=== PATIENT | female | born 1995 | race Caucasian/White ===

== ENCOUNTER 2016-11-21 12:24 | Observation (INO) | payer OTHER ==
--- NOTE | ~2016-11-21 | DS ---
Discharge Summary [facility] [address] [place]. [address] NAME: ALAINA NORTON : 89 STATUS : DIS Caesar PAT#: [id number] AGE: 21 ADM/REG DATE : 11/21/16 MR#: [id number] REPORT SERV DATE: 11/24/16 DICTATED BY: ARI BOTELLO DATE: 11/23/16 REPORT STATUS : Draft TRANSCRIBED BY: MODArchana DATE: 11/23/16 ADMISSION DATE: 11/21/2016 DISCHARGE DATE: 11/23/2016 PROCEDURES DONE: 1. 11/21/2016 CT abdomen and pelvis without contrast. Partially dislodged jejunostomy tube with a retention balloon within the trach, within the abdominal wall near the skin surface. The distal aspect of tube remains in the jejunal lumen. Trace fluid in the pelvis, which may be physiologic. Stable subpleural nodule density in left lower lobe measuring 4 x 7 mm suggest follow up as previously recommended with followup. Low-dose CT scan of chest in 6 months from my prior imaging performed on 09/11/2016. Status post cholecystectomy. 2. 11/22/2016 chest x-ray: PICC line tips and SVC in satisfactory position. No acute process and no change. 3. 11/22/2016, Interventional Radiology. Technically successful fluoroscopy associated over the guidewire J-tube exchange. CONSULTANTS: Dr. Bro, for GI, Dr. Tellez for Psychology, and Dr. Pantoja for ID. REASON FOR ADMISSION: Displaced J-tube. 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 The patient apparently has dislodge her J-tube. Unknown mechanism at the time of presentation. CT scan abdomen and pelvis shows balloon was within the abdominal tract. Interventional Radiology was consulted, which replaced the change in ostomy tube via guidewire. The patient tolerated procedure well without any complication. More importantly, Infectious Disease was consulted because the patient had a discharge near the PEG site. The patient was concerned about possible infection. ID was consulted, which felt that the patient's overall clinical picture does not does not show any active infection around the PEG site. In addition, Dr. Tellez was consulted for possible disruption of the feeding tube. Dr. Tellez felt that there was no psychiatric intervention at this time and does not see any evidence for Munchausen diagnosis. In addition, during the hospital stay, the patient was noted to be taking significant amounts of Dilaudid, Phenergan, and Benadryl given together. The patient consumed approximately within 48 hours greater than 100 mg equivalent of morphine. At this time, the patient does not have any significant gastroparesis. She is able to eat p.o., as well as tolerate the PEG tube feedings. The following information was relayed to Dr. Bro, who felt that the patient can be safely discharged with a tube feeding rate of 30 mL an hour on promote. In addition, the patient has been advised to encourage her p.o. intake in order to control her blood sugar. DISPOSITION: The patient is feeling fine, no complaint. ACTIVITIES: As tolerated. Discharge Summary [address] [address] NAME: ALAINA NORTON : 89 STATUS : DIS Caesar PAT#: [id number] AGE: 21 ADM/REG DATE : 11/21/16 MR#: [id number] REPORT SERV DATE: 11/24/16 DICTATED BY: ARI BOTELLO DATE: 11/23/16 REPORT STATUS : Draft TRANSCRIBED BY: MIKEY DATE: 11/23/16 DIET: Diabetic with promote. MEDICATION UPON DISCHARGE: 1. BuSpar 10 mg p.o. daily via PEG daily. 2. Vitamin D 50,000 units via PEG q. Mondays. 3. Neurontin 300 mg via PEG daily. 4. NovoLog sliding scale. 5. Levemir 100 units subcu q.8h. 6. Lidoderm 5% patch q.12 hours on, q.12 hours off. 7. Singulair 10 mg p.o. at bedtime. 8. Metoprolol 12.5 mg p.o. b.i.d. 9. Protonix 40 mg p.o. daily. 10.Potassium 15 mg via PEG at bedtime. 11.Xarelto 20 mg p.o. q supper. 12.Vitamin E ointment topical b.i.d. 13.Dulera 100/5 two puffs b.i.d. p.r.n. 14.Multivitamin one tab daily. 15.Phenergan topical jelly q.6 p.r.n. 16.Benadryl 25 mg p.o./liquid q.4 hours p.r.n. 17.Albuterol nebulizers q.4 hours p.r.n. 18.Zofran 8 mg p.o. q.4 hours. 19.Milk of magnesia 30 mL via PEG daily p.r.n. 20.Ultram 50 mg p.o. t.i.d. p.r.n. 21.Lidocaine jelly topical q.8h p.r.n. 22.Phenergan 12.5 mg p.o. q 4 hours p.r.n. 23.Phenergan 25 mg IV p.r.n. DIAGNOSES UPON DISCHARGE: 1. Dislodge PEG. 2. Diabetic gastroparesis. 3. Diabetes type 1. FBJ/MODL Ari Botello MD / [id number] CC: MD Sweta Barrientos MD
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
--- NOTE | ~2016-11-21 | HP ---
History And Physical [address] [address] NAME: ALAINA NORTON : [birth year] STATUS : ADM Caesar PAT#: [id number] AGE: 21 ADM/REG DATE : 11/21/16 MR#: [id number] REPORT SERV DATE: 11/22/16 DICTATED BY: ARI BOTELLO DATE: 11/21/16 REPORT STATUS : Draft TRANSCRIBED BY: MIKEY DATE: 11/21/16 DATE OF ADMISSION: 11/21/2016 CHIEF COMPLAINT: Displaced J-tube, unknown duration. 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 The patient apparently stated that she was picking up her grandpa, which weighed about 176 pounds, off the floor. After that the patient noticed that her J-tube has been displaced. On further questioning, the patient states that she could not remember exactly what happened other than the J-tube has been coming out. The patient cannot give any further history regarding as to the reason why her J-tube is out. PAST MEDICAL HISTORY: As above. MEDICATIONS: The patient takes: 1. Albuterol nebulizers q.4 hours p.r.n. 2. BuSpar 10 mg via PEG daily. 3. Benadryl 25 mg p.o./LIQ q.4 hours p.r.n. 4. Vitamin D 50,000 units via PEG Mondays. 5. Neurontin 300 mg via PEG daily. 6. Sliding scale. 7. Levemir 100 units subcu q.8. 8. Lidoderm patch q.12 hours on and off. 9. Metoprolol 12.5 mg via PEG b.i.d. 10.Milk of magnesia 30 mL p.o. via PEG daily p.r.n. 11.Dulera 100/5 two puffs b.i.d. p.r.n. 12.Singulair 10 mg via PEG p.r.n. 13.Centrum one tab daily. 14.Zofran 8 mg via PEG q.4 hours. 15.Protonix 40 mg daily. 16.Potassium 20 mEq in a 50 mL via PEG at bedtime. 17.Phenergan 12.5 mg p.o. q.4. 18.Phenergan 12,5 mg p.r. q.6 p.r.n. 19.Phenergan 12.5 mg IV q.4 hours p.r.n. 20.Xarelto 20 mg p.o. with supper. 21.Ultram 50 mg p.o. t.i.d. p.r.n. 22.Vitamin D ointment topical b.i.d. 23.Phenergan topical jelly q.6 hours p.r.n. 24.Lidocaine jelly topical q.8 hours p.r.n. ALLERGIES: SULFA, CODEINE, OXYCODONE, TYLENOL, ERYTHROMYCIN, CLINDAMYCIN, AUGMENTIN, BACTRIM, CIPRO, ADHESIVE, AZITHROMYCIN, AMOXICILLIN, REGLAN, PUMPKIN, SEGURA MALLOW ROOT, ADHESIVE, LATEX, AND CARAMEL. History And Physical [address] [address] NAME: ALAINA NORTON : 89 STATUS : ADM Caesar PAT#: [id number] AGE: 21 ADM/REG DATE : 11/21/16 MR#: [id number] REPORT SERV DATE: 11/22/16 DICTATED BY: ARI BOTELLO DATE: 11/21/16 REPORT STATUS : Draft TRANSCRIBED BY: MIKEY DATE: 11/21/16 SOCIAL HISTORY: Nonsmoker nondrinker. FAMILY HISTORY: The patient is adopted. However, the patient states there is diabetes, history of breast cancer, and sarcoidosis. REVIEW OF SYSTEMS: A 10-point review of systems conducted, which were negative except for above complaints. PHYSICAL EXAMINATION: VITAL SIGNS: Temp 97.7, pulse 115, respiratory rate 16, BP 167/96, and O2 saturation 99% on room air. HEAD AND NECK: Normocephalic and atraumatic. LUNGS: Good air entry. No wheeze, rales, or rhonchi. ABDOMEN: Soft, nontender, nondistended. Positive bowel sounds. J-PEG is in place, questionable drainage. EXTREMITIES: No clubbing, cyanosis, or edema. NEUROLOGICAL: Awake, alert, and oriented x3. Cranial nerves 2 through 12 grossly intact. LABORATORY DATA: Sodium 137, potassium 4.9, chloride 101, bicarb 24, BUN 9, creatinine 0.46, glucose 381, GFR 141, calcium 8.4, total protein 7.5, albumin 3.4, globulin 3.6, total bilirubin 0.5, alkaline phosphatase 74, ALT 25, and AST 15. WBC 5.6, hemoglobin 12.5, hematocrit 35.2, and platelets 238. CT abdomen and pelvis without contrast. Partially dislodged jejunostomy tube with the retention balloon within the tract within the abdominal wall near the skin surface. The distal aspect of the tube remains in jejunal lumen. Trace free fluid in the pelvis, which may be psychologic. Stable subpleural nodule density in the left lower lobe measuring 4 x 7 mm, suggest followup as previous with a followup low-dose CT scan at 6 months prior to imaging performed on 09/11/2016 and status post cholecystectomy. ASSESSMENT AND PLAN: 1. J-tube displacement. We will have Interventional Radiology change the current displaced J-tube. There is a question that the patient would like to see Dr. Bro. At this time, we will place a courtesy consult at this time regarding the patient's J- tube displacement. 2. Diabetes type 1. Continue the patient's Levemir 100 units subcu b.i.d. and a sliding scale. We will check HbA1c. Apparently, the patient visits Dr. Turcios's office once a week for diabetes control. Apparently, the patient states that her blood sugar still remains elevated. 3. Diabetic gastroparesis. The patient states there is also changes regarding her Phenergan, which was 25 mg IV q.4, which is rather high for prolonged use of Phenergan. We will try to get the medication from her pharmacy to verify dose. 4. DVT. We will give heparin. FBJ/MODL Ari Mitchell History And Physical [address] [place]. [address] NAME: ALAINA NORTON : 89 STATUS : ADM Caesar PAT#: [id number] AGE: 21 ADM/REG DATE : 11/21/16 MR#: [id number] REPORT SERV DATE: 11/22/16 DICTATED BY: ARI BOTELLO DATE: 11/21/16 REPORT STATUS : Draft TRANSCRIBED BY: MODL DATE: 11/21/16 MD Farzaneh / [id number] CC: Ari Botello MD
[2016-11-21 12:03] LABS: BASOPHILS 0.5 %; BASOPHILS ABSOLUTE 0.03 10/3/uL (0.0-0.16); EOSINOPHILS 2.5 %; EOSINOPHILS ABSOLUTE 0.14 10/3/uL (0.0-0.53); HEMATOCRIT 35.2 % (36.0-48.0); HEMOGLOBIN 12.5 g/dL (12.0-16.0); IMMATURE GRANULOCYTES 0.2 %; IMMATURE GRANULOCYTES ABSOLUTE 0.01 10/3/uL (0.0-0.11); LYMPHOCYTES 19.9 %; LYMPHOCYTES ABSOLUTE 1.11 10/3/uL (0.67-4.30); MANUAL DIFF NO %; MEAN CORPUS HGB CONC 35.5 g/dL (32.0-36.0); MEAN CORPUSCULAR HEMOGLOB 28.3 pg (26.0-34.0); MEAN CORPUSCULAR VOLUME 79.8 fL (80-100); MEAN PLATELET VOLUME 9.9 fL (9.2-13.0); NEUTROPHILS 67.9 %; NEUTROPHILS ABSOLUTE 3.78 10/3/uL (2.02-8.40); PLATELET COUNT 238 10/3/uL (150-400); RBC DISTRIBUTION WIDTH 12.2 % (12.0-16.0); RED CELL COUNT 4.41 10/6/uL (4.0-5.6); WHITE BLOOD CELLS 5.6 10/3/uL (4.5-10.5)
[2016-11-21 12:20] LABS: A/G RATIO 0.9 (0.7-1.9); ALKALINE PHOSPHATASE 74 U/L (45-117); BUN (BLOOD UREA NITROGEN) 9 MG/DL (6-23); CHLORIDE, SERUM 101 MMOL/L (96-112); CO2 (CARBON DIOXIDE) 24 MMOL/L (24-34); CREATININE 0.46 MG/DL (0.55-1.02); GFR AFRICAN AMERICAN 164 ML/MIN (>=60); GFR NON AFRICAN AMERICAN 141 ML/MIN (>=60); GLOBULIN 3.6 G/DL (2.5-4.1); POTASSIUM, SERUM 4.1 MMOL/L (3.5-5.3); SGOT(AST) 15 U/L (5-40); SGPT(ALT) 25 U/L (5-65); SODIUM, SERUM 137 MMOL/L (135-148); TOTAL BILIRUBIN 0.5 MG/DL (0-1.2)
[2016-11-21 12:23] LABS: ALBUMIN 3.4 G/DL (3.5-5.0); CALCIUM, SERUM 8.4 MG/DL (8.5-10.4); GLUCOSE, SERUM 381 MG/DL (60-99)
[~2016-11-21 12:24] MED LIST: BEN25UDL PO; BEN50P IV; BUSPAR10 PEG; CENTRUM PEG; DULERA 100 MCG/13 GM INH; FISH OIL PEG; FLAGIV500 IV; GABAPENTIN PO; KCL20UDL PEG; LEVEMIR SC; LIDOCAINE JELLY 2% T; LIDODERM TOP; LISINOPRIL RX PO; LOP25 PEG; MOMUD PEG; NEUR300 PEG; NOVOLOG SC; PHENERGAN 2525 MG/M1 IV; POTASSIUM OTC PO; PR12.5 PO; PR25P IV; PROMETHAZINE TOP; PROTONIX PO; PROVENTSOL INH; PULMICORT INH; SINGULAIR1 PEG; TRESIBA FL100 UNIT/1 SC; ULTRAM50 PO; VITAMIN B-12 OTC PEG; VITAMIN E TOP; VITD PEG; XARELTO20 MG PO; ZOFRANODT8 PEG
[2016-11-22 05:01] LABS: BASOPHILS 0.5 %; BASOPHILS ABSOLUTE 0.02 10/3/uL (0.0-0.16); EOSINOPHILS 3.2 %; EOSINOPHILS ABSOLUTE 0.14 10/3/uL (0.0-0.53); HEMATOCRIT 34.2 % (36.0-48.0); HEMOGLOBIN 11.6 g/dL (12.0-16.0); IMMATURE GRANULOCYTES 0.2 %; IMMATURE GRANULOCYTES ABSOLUTE 0.01 10/3/uL (0.0-0.11); LYMPHOCYTES 41.3 %; LYMPHOCYTES ABSOLUTE 1.83 10/3/uL (0.67-4.30); MANUAL DIFF NO %; MEAN CORPUS HGB CONC 33.9 g/dL (32.0-36.0); MEAN CORPUSCULAR VOLUME 82.4 fL (80-100); NEUTROPHILS 45.8 %; NEUTROPHILS ABSOLUTE 2.03 10/3/uL (2.02-8.40); PLATELET COUNT 255 10/3/uL (150-400); RBC DISTRIBUTION WIDTH 12.2 % (12.0-16.0); RED CELL COUNT 4.15 10/6/uL (4.0-5.6); WHITE BLOOD CELLS 4.4 10/3/uL (4.5-10.5)
[2016-11-22 05:15] LABS: ALBUMIN 3.1 G/DL (3.5-5.0); ALKALINE PHOSPHATASE 65 U/L (45-117); BUN (BLOOD UREA NITROGEN) 7 MG/DL (6-23); CALCIUM, SERUM 8.6 MG/DL (8.5-10.4); CHLORIDE, SERUM 102 MMOL/L (96-112); CO2 (CARBON DIOXIDE) 25 MMOL/L (24-34); CREATININE 0.54 MG/DL (0.55-1.02); GFR AFRICAN AMERICAN 155 ML/MIN (>=60); GFR NON AFRICAN AMERICAN 134 ML/MIN (>=60); GLOBULIN 3.2 G/DL (2.5-4.1); SGOT(AST) 17 U/L (5-40); SGPT(ALT) 21 U/L (5-65); SODIUM, SERUM 138 MMOL/L (135-148); TOTAL BILIRUBIN 0.6 MG/DL (0-1.2); TOTAL PROTEIN 6.3 G/DL (6.0-8.5)
[2016-11-22 05:20] LABS: GLUCOSE, SERUM 419 MG/DL (60-99)
[2016-11-22 09:01] LABS: INTERNATIONAL NORMAL RATI 1.1 UNITS (-); PROTIME (NOT ORD) 13.6 SEC (12.0-14.5)
[2016-11-23 05:55] LABS: BASOPHILS 0.5 %; BASOPHILS ABSOLUTE 0.03 10/3/uL (0.0-0.16); EOSINOPHILS 3.8 %; EOSINOPHILS ABSOLUTE 0.25 10/3/uL (0.0-0.53); HEMATOCRIT 36.3 % (36.0-48.0); HEMOGLOBIN 12.6 g/dL (12.0-16.0); IMMATURE GRANULOCYTES 0.3 %; IMMATURE GRANULOCYTES ABSOLUTE 0.02 10/3/uL (0.0-0.11); LYMPHOCYTES 35.3 %; MEAN CORPUS HGB CONC 34.7 g/dL (32.0-36.0); MEAN CORPUSCULAR HEMOGLOB 28.4 pg (26.0-34.0); MEAN CORPUSCULAR VOLUME 81.9 fL (80-100); MEAN PLATELET VOLUME 9.5 fL (9.2-13.0); MONOCYTES 9.8 %; MONOCYTES ABSOLUTE 0.64 10/3/uL (0.21-1.20); NEUTROPHILS 50.3 %; NEUTROPHILS ABSOLUTE 3.28 10/3/uL (2.02-8.40); PLATELET COUNT 312 10/3/uL (150-400); RBC DISTRIBUTION WIDTH 12.2 % (12.0-16.0); RED CELL COUNT 4.43 10/6/uL (4.0-5.6)
[2016-11-23 06:01] LABS: ALBUMIN 3.4 G/DL (3.5-5.0); ALKALINE PHOSPHATASE 71 U/L (45-117); BUN (BLOOD UREA NITROGEN) 7 MG/DL (6-23); CALCIUM, SERUM 8.8 MG/DL (8.5-10.4); CHLORIDE, SERUM 106 MMOL/L (96-112); CO2 (CARBON DIOXIDE) 26 MMOL/L (24-34); CREATININE 0.43 MG/DL (0.55-1.02); GFR AFRICAN AMERICAN 167 ML/MIN (>=60); GFR NON AFRICAN AMERICAN 144 ML/MIN (>=60); GLOBULIN 3.5 G/DL (2.5-4.1); PHOSPHORUS, SERUM 4.3 MG/DL (2.5-4.5); POTASSIUM, SERUM 3.4 MMOL/L (3.5-5.3); SGOT(AST) 10 U/L (5-40); SGPT(ALT) 18 U/L (5-65); SODIUM, SERUM 143 MMOL/L (135-148); TOTAL BILIRUBIN 0.5 MG/DL (0-1.2); TOTAL PROTEIN 6.9 G/DL (6.0-8.5)
[2016-11-23 06:02] LABS: GLUCOSE, SERUM 71 MG/DL (60-99)
[2016-11-23 06:11] LABS: MANUAL DIFF NO %; WHITE BLOOD CELLS 6.5 10/3/uL (4.5-10.5)
== END 2016-11-23 17:40 | disposition home or self-care (01) ==
LOC: ER 12:24 → CDU1 17:18
PROVIDERS: Hospitalist
DX: K94.23 Gastrostomy malfunction (principal); E11.43 Type 2 diabetes mellitus with diabetic autonomic (poly)neuropathy; K31.84 Gastroparesis; I82.409 Acute embolism and thrombosis of unspecified deep veins of unspecified lower extremity; J45.909 Unspecified asthma, uncomplicated; F41.9 Anxiety disorder, unspecified; Z88.1 Allergy status to other antibiotic agents; Z91.040 Latex allergy status; Z88.6 Allergy status to analgesic agent; Z88.2 Allergy status to sulfonamides; Z88.5 Allergy status to narcotic agent; Z88.8 Allergy status to other drugs, medicaments and biological substances; Z83.3 Family history of diabetes mellitus; Z80.3 Family history of malignant neoplasm of breast; Z79.4 Long term (current) use of insulin; Z90.49 Acquired absence of other specified parts of digestive tract; Z79.899 Other long term (current) drug therapy
CPT/HCPCS: 49451; 71010; 74176; 80053; 82962; 83036; 83735; 84100; 84703; 85025; 85610; 87040; 87070; 87077; 87186; 87205; 96372; 96374; 96375; 96376; 96523; 99284; A9270-GY; C1769; G0378; J0330; J1170; J1200; J2370; J2405; J2550; Q9967

== ENCOUNTER 2016-12-07 23:50 | Emergency (ER) | payer OTHER ==
[2016-12-08 01:41] LABS: BASOPHILS 0.4 %; BASOPHILS ABSOLUTE 0.02 10/3/uL (0.0-0.16); EOSINOPHILS 2.1 %; EOSINOPHILS ABSOLUTE 0.11 10/3/uL (0.0-0.53); ER CBC TAT 0 Hrs 05 Mins; HEMATOCRIT 36.3 % (36.0-48.0); HEMOGLOBIN 12.7 g/dL (12.0-16.0); IMMATURE GRANULOCYTES 0.2 %; IMMATURE GRANULOCYTES ABSOLUTE 0.01 10/3/uL (0.0-0.11); LYMPHOCYTES 34.3 %; LYMPHOCYTES ABSOLUTE 1.82 10/3/uL (0.67-4.30); MEAN CORPUSCULAR HEMOGLOB 28.1 pg (26.0-34.0); MEAN CORPUSCULAR VOLUME 80.3 fL (80-100); MONOCYTES ABSOLUTE 0.32 10/3/uL (0.21-1.20); NEUTROPHILS ABSOLUTE 3.02 10/3/uL (2.02-8.40); PLATELET COUNT 256 10/3/uL (150-400); RBC DISTRIBUTION WIDTH 12.8 % (12.0-16.0); RED CELL COUNT 4.52 10/6/uL (4.0-5.6); WHITE BLOOD CELLS 5.3 10/3/uL (4.5-10.5)
[2016-12-08 01:43] LABS: ASCORBIC ACID (UR NOT ORDER) NEG (NEG); BILIRUBIN, URINE NEGATIVE (NEG); ER URINALYSIS TAT 0 Hrs 00 Mins; KETONE, URINE TRACE MG/DL (NEG); LEUKOCYTE ESTERASE(NOT OR NEG (NEG); NITRITE (URINE) NEG (NEG); WBC (NOT ORDERED) (RFLEX) < 1 (0-5)
[2016-12-08 01:47] LABS: MANUAL DIFF NO %
[2016-12-08 01:52] LABS: PARTIAL THROMBO TIME 25.2 SEC (22.5-37.2); PROTIME (NOT ORD) 13.5 SEC (12.0-14.5)
[2016-12-08 01:59] LABS: BUN (BLOOD UREA NITROGEN) 5 MG/DL (6-23); CALCIUM, SERUM 8.7 MG/DL (8.5-10.4); CHEST PAIN PROFILE TAT 0 Hrs 23 Mins; CHLORIDE, SERUM 100 MMOL/L (96-112); CO2 (CARBON DIOXIDE) 29 MMOL/L (24-34); CREATININE 0.57 MG/DL (0.55-1.02); GFR AFRICAN AMERICAN 153 ML/MIN (>=60); GFR NON AFRICAN AMERICAN 132 ML/MIN (>=60); GLUCOSE, SERUM 395 MG/DL (60-99); POTASSIUM, SERUM 3.3 MMOL/L (3.5-5.3); SODIUM, SERUM 140 MMOL/L (135-148); TROPONIN I <0.02 NG/ML (<0.05)
[2016-12-08 02:08] LABS: ACETONE NEG
== END 2016-12-08 03:46 | disposition home or self-care (01) ==
LOC: ER 23:50
PROVIDERS: Emergency Medicine
DX: E10.65 Type 1 diabetes mellitus with hyperglycemia (principal); Z86.718 Personal history of other venous thrombosis and embolism; Z93.4 Other artificial openings of gastrointestinal tract status; Z88.2 Allergy status to sulfonamides; Z88.5 Allergy status to narcotic agent; Z88.6 Allergy status to analgesic agent; Z88.1 Allergy status to other antibiotic agents; Z88.8 Allergy status to other drugs, medicaments and biological substances; Z91.040 Latex allergy status; Z91.018 Allergy to other foods; Z79.4 Long term (current) use of insulin; Z79.899 Other long term (current) drug therapy
CPT/HCPCS: 80048; 81001; 82009; 82962; 83735; 84484; 84703; 85025; 85610; 85730; 93005; 96374; 96375; 99285; J1170; J1200; J2550

== ENCOUNTER 2016-12-23 10:17 | Emergency (ER) | payer OTHER ==
[2016-12-23 09:21] LABS: BASOPHILS 0.4 %; BASOPHILS ABSOLUTE 0.02 10/3/uL (0.0-0.16); EOSINOPHILS 1.7 %; EOSINOPHILS ABSOLUTE 0.08 10/3/uL (0.0-0.53); ER CBC TAT 0 Hrs 05 Mins; HEMATOCRIT 37.6 % (36.0-48.0); HEMOGLOBIN 12.8 g/dL (12.0-16.0); IMMATURE GRANULOCYTES 0.4 %; IMMATURE GRANULOCYTES ABSOLUTE 0.02 10/3/uL (0.0-0.11); LYMPHOCYTES 25.6 %; LYMPHOCYTES ABSOLUTE 1.22 10/3/uL (0.67-4.30); MANUAL DIFF NO %; MEAN CORPUSCULAR HEMOGLOB 27.4 pg (26.0-34.0); MEAN CORPUSCULAR VOLUME 80.3 fL (80-100); MEAN PLATELET VOLUME 10.1 fL (9.2-13.0); MONOCYTES 7.1 %; MONOCYTES ABSOLUTE 0.34 10/3/uL (0.21-1.20); NEUTROPHILS 64.8 %; NEUTROPHILS ABSOLUTE 3.08 10/3/uL (2.02-8.40); PLATELET COUNT 195 10/3/uL (150-400); RBC DISTRIBUTION WIDTH 12.9 % (12.0-16.0); RED CELL COUNT 4.68 10/6/uL (4.0-5.6); WHITE BLOOD CELLS 4.8 10/3/uL (4.5-10.5)
[2016-12-23 09:36] LABS: PROTIME (NOT ORD) 13.5 SEC (12.0-14.5)
[2016-12-23 09:37] LABS: PARTIAL THROMBO TIME 25.1 SEC (22.5-37.2)
[2016-12-23 09:38] LABS: LACTATE 0.4 MMOL/L (0.3-2.4)
[2016-12-23 09:39] LABS: A/G RATIO 0.9 (0.7-1.9); ALBUMIN 3.3 G/DL (3.5-5.0); CALCIUM, SERUM 8.4 MG/DL (8.5-10.4); CHLORIDE, SERUM 100 MMOL/L (96-112); GFR AFRICAN AMERICAN 159 ML/MIN (>=60); GFR NON AFRICAN AMERICAN 137 ML/MIN (>=60); GLOBULIN 3.6 G/DL (2.5-4.1); SGOT(AST) 11 U/L (5-40); SGPT(ALT) 17 U/L (5-65); SODIUM, SERUM 136 MMOL/L (135-148); TOTAL PROTEIN 6.9 G/DL (6.0-8.5)
[2016-12-23 09:43] LABS: ALKALINE PHOSPHATASE 90 U/L (45-117); BUN (BLOOD UREA NITROGEN) 10 MG/DL (6-23); CO2 (CARBON DIOXIDE) 22 MMOL/L (24-34); GLUCOSE, SERUM 436 MG/DL (60-99); TOTAL BILIRUBIN 1.1 MG/DL (0-1.2)
[2016-12-23 09:51] LABS: WBC (NOT ORDERED) (RFLEX) 0 (0-5)
[2016-12-23 09:57] LABS: ASCORBIC ACID (UR NOT ORDER) NEG (NEG); BILIRUBIN, URINE NEGATIVE (NEG); ER URINALYSIS TAT 0 Hrs 08 Mins; KETONE, URINE 80 MG/DL (NEG); LEUKOCYTE ESTERASE(NOT OR NEG (NEG); NITRITE (URINE) NEG (NEG)
[2016-12-23 11:35] LABS: PROCALCITONIN <0.05 ng/mL (<0.5)
== END 2016-12-23 15:18 | disposition home or self-care (01) ==
LOC: ER 10:17
PROVIDERS: Emergency Medicine
DX: K94.19 Other complications of enterostomy (principal); E11.65 Type 2 diabetes mellitus with hyperglycemia; E11.43 Type 2 diabetes mellitus with diabetic autonomic (poly)neuropathy; K31.84 Gastroparesis; J45.909 Unspecified asthma, uncomplicated; Z88.2 Allergy status to sulfonamides; Z88.5 Allergy status to narcotic agent; Z88.6 Allergy status to analgesic agent; Z88.1 Allergy status to other antibiotic agents; Z88.8 Allergy status to other drugs, medicaments and biological substances; Z91.018 Allergy to other foods; Z91.040 Latex allergy status; Z91.09 Other allergy status, other than to drugs and biological substances; Z79.4 Long term (current) use of insulin; Z79.899 Other long term (current) drug therapy
CPT/HCPCS: 43761; 71010; 76000; 80053; 81001; 82962; 83605; 84145; 85025; 85610; 85730; 87040; 96374; 96375; 99285; A9270-GY; J1200; J2550

== ENCOUNTER 2017-01-11 01:11 | Emergency (ER) | payer OTHER ==
[2017-01-11 02:21] LABS: BASOPHILS 0.5 %; BASOPHILS ABSOLUTE 0.03 10/3/uL (0.0-0.16); EOSINOPHILS 2.1 %; EOSINOPHILS ABSOLUTE 0.13 10/3/uL (0.0-0.53); HEMATOCRIT 37.4 % (36.0-48.0); HEMOGLOBIN 12.2 g/dL (12.0-16.0); IMMATURE GRANULOCYTES 0.2 %; IMMATURE GRANULOCYTES ABSOLUTE 0.01 10/3/uL (0.0-0.11); LYMPHOCYTES 32.2 %; LYMPHOCYTES ABSOLUTE 2.02 10/3/uL (0.67-4.30); MEAN CORPUS HGB CONC 32.6 g/dL (32.0-36.0); MEAN CORPUSCULAR HEMOGLOB 26.8 pg (26.0-34.0); MEAN CORPUSCULAR VOLUME 82.2 fL (80-100); MEAN PLATELET VOLUME 9.5 fL (9.2-13.0); MONOCYTES 7.5 %; MONOCYTES ABSOLUTE 0.47 10/3/uL (0.21-1.20); NEUTROPHILS 57.5 %; NEUTROPHILS ABSOLUTE 3.62 10/3/uL (2.02-8.40); PLATELET COUNT 233 10/3/uL (150-400); RBC DISTRIBUTION WIDTH 13.1 % (12.0-16.0); RED CELL COUNT 4.55 10/6/uL (4.0-5.6); WHITE BLOOD CELLS 6.3 10/3/uL (4.5-10.5)
[2017-01-11 02:22] LABS: MANUAL DIFF NO %
[2017-01-11 02:28] LABS: ASCORBIC ACID (UR NOT ORDER) NEG (NEG); BILIRUBIN, URINE NEGATIVE (NEG); ER URINALYSIS TAT 0 Hrs 00 Mins; KETONE, URINE NEGATIVE (NEG); LEUKOCYTE ESTERASE(NOT OR NEG (NEG); NITRITE (URINE) NEG (NEG); WBC (NOT ORDERED) (RFLEX) < 1 (0-5)
[2017-01-11 02:36] LABS: A/G RATIO 0.9 (0.7-1.9); ALBUMIN 3.4 G/DL (3.5-5.0); ALKALINE PHOSPHATASE 79 U/L (45-117); CALCIUM, SERUM 9.3 MG/DL (8.5-10.4); CHLORIDE, SERUM 107 MMOL/L (96-112); CO2 (CARBON DIOXIDE) 25 MMOL/L (24-34); CREATININE 0.59 MG/DL (0.55-1.02); GFR AFRICAN AMERICAN 151 ML/MIN (>=60); GFR NON AFRICAN AMERICAN 130 ML/MIN (>=60); GLOBULIN 3.8 G/DL (2.5-4.1); POTASSIUM, SERUM 3.6 MMOL/L (3.5-5.3); SGOT(AST) 18 U/L (5-40); SGPT(ALT) 27 U/L (5-65); SODIUM, SERUM 142 MMOL/L (135-148); TOTAL PROTEIN 7.2 G/DL (6.0-8.5)
[2017-01-11 02:37] LABS: BUN (BLOOD UREA NITROGEN) 16 MG/DL (6-23); LACTATE 1.7 MMOL/L (0.3-2.4)
[2017-01-11 02:38] LABS: GLUCOSE, SERUM 115 MG/DL (60-99); TOTAL BILIRUBIN 0.2 MG/DL (0-1.2)
== END 2017-01-11 04:22 | disposition home or self-care (01) ==
LOC: ER 01:11
PROVIDERS: Emergency Medicine
DX: R10.12 Left upper quadrant pain (principal); G89.29 Other chronic pain; E10.9 Type 1 diabetes mellitus without complications; Z86.718 Personal history of other venous thrombosis and embolism; Z88.2 Allergy status to sulfonamides; Z88.5 Allergy status to narcotic agent; Z88.6 Allergy status to analgesic agent; Z88.1 Allergy status to other antibiotic agents; Z88.8 Allergy status to other drugs, medicaments and biological substances; Z79.4 Long term (current) use of insulin; Z79.899 Other long term (current) drug therapy
CPT/HCPCS: 71010; 74176; 80053; 81001; 82962; 83605; 83690; 84703; 85025; 87040; 93005; 96374; 96375; 99285; J1200; J1980; J2550

== ENCOUNTER 2017-01-22 20:36 | Inpatient (IN) | payer OTHER ==
--- NOTE | ~2017-01-22 | DS ---
Discharge Summary [facility] [id number] [place]. [address] NAME: BELINDA NORTON : 89 STATUS : DIS IN PAT#: [id number] AGE: 22 ADM/REG DATE : 01/22/17 MR#: [id number] REPORT SERV DATE: 02/07/17 DICTATED BY: SAEID SANCHEZ DATE: 02/06/17 REPORT STATUS : Draft TRANSCRIBED BY: MODL DATE: 02/06/17 ADMISSION DATE: 01/22/2017 DISCHARGE DATE: 02/06/2017 GI: Dr. Bro. ENDO: Dr. Turcios. PULMONARY: Dr. Ohara CONSULTING PHYSICIAN: Neurology, Dr. Montero. Psychiatry, Dr. Tellez. Pulmonary, Dr. Nino. GI, Dr. Sanders and Dr. Bro. Vascular Surgery, Dr. Phillips. 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 HOSPITAL COURSE: Please refer to the H and P done by Dr. Sampson, dated 01/23/2017 and the interim discharge summary done by Dr. Bhandari on 02/05/2017. Since I took care of the patient, the patient was ready for discharge several weeks back, however, she keeps coming back with some new symptoms that seems trivial. We finally got Dr. Tellez involved and he believed that this might be a possible somatization disorder. He strongly recommended that she should return to her outpatient counseling and he signed off. The patient did not have a documented vomiting. She continues having this nausea and abdominal pain which did not seem to go away. She is able to eat without any vomiting and her sugar is under control with her insulin pump. The patient also was treated with Levaquin and has been afebrile and the white count has been normal. The patient is now ready for discharge. We got clearance from GI for her to go several days back and so she should be discharged to home with family. She needs to follow up with her PCP, Dr. Moura in one to two weeks. Follow up with GI, Dr. Bro as scheduled; Dr. Turcios for Endocrinology; Dr. Ohara for Pulmonary in six months for followup with the nodule in Outpatient Psychiatry as scheduled. The patient will be on the same home medication that she was on which are BuSpar 10 mg p.r.n. anxiety, Benadryl 25 mg as needed, insulin pump, metoprolol 12.5 mg twice a day, Dulera 100/5 two puffs twice a day, Singulair 10 mg a day, Phenergan 25 mg IV q.[address] Almaguer told me Dr. Bro is planning to send her for a tertiary evaluation and what to do with her gastroparesis as an outpatient. This has been discussed with the patient. She understood the plan. MIRYAM/MIKEY Saeid Sanchez M.D. / [id number] Discharge Summary [address] [address] NAME: BELINDA NORTON : 89 STATUS : DIS IN PAT#: [id number] AGE: 22 ADM/REG DATE : 01/22/17 MR#: [id number] REPORT SERV DATE: 02/07/17 DICTATED BY: SAEID SANCHEZ DATE: 02/06/17 REPORT STATUS : Draft TRANSCRIBED BY: MIKEY DATE: 02/06/17 CC: Chaim Jaramillo MD
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
--- NOTE | ~2017-01-22 | EEG ---
Electroencephalogram [facility] [address] [place]. [address] NAME: BELINDA NORTON : 89 STATUS : ADM IN PAT#: [id number] AGE: 22 ADM/REG DATE : 01/22/17 MR#: [id number] REPORT SERV DATE: 02/02/17 DICTATED BY: DATE: REPORT STATUS : Draft TRANSCRIBED BY: MODL DATE: 02/02/17 CLINICAL INDICATION: Loss of consciousness episode. DESCRIPTION: This EEG was performed using 10/20 electrode placement system. During the EEG study, the patient was noted to have symmetric background activity, predominant occipital rhythm of 10 to 11 hertz. The patient was noted to be drowsy from the beginning of the EEG study, with the stage I to II sleep as well as sleep spindles. Otherwise the photic stimulation was performed with appropriate driver material handler driving response. Hyperventilation was not performed secondary to the patient's underlying medical problem as well as excessive drowsiness and sleepiness. During the EEG study, no focal abnormalities, seizure activity, or seizure discharge was otherwise noted. INTERPRETATION: This EEG study was obtained during awake, drowsy as well as stage I and II sleep may be considered mildly abnormal secondary to excessive drowsiness as well as excessive sleepiness. Outpatient sleep study might be oriented for further evaluation. Otherwise, no electrographic seizure was noted. No loss of consciousness episode. Clinical event was captured. No focal abnormalities, seizure activity, or seizure discharge was noted. Clinical correlation is recommended. [facility]/MOD Josh Montero MD / [id number] CC: Chaim Abraham MD
--- NOTE | ~2017-01-22 | HP ---
History And Physical [id number] [place]. [address] NAME: ALAINA NORTON : 89 STATUS : ADM Caesar PAT#: [id number] AGE: 21 ADM/REG DATE : 01/22/17 MR#: [id number] REPORT SERV DATE: 01/23/17 DICTATED BY: FREDDY RODGERS DATE: 01/23/17 REPORT STATUS : Draft TRANSCRIBED BY: MODL DATE: 01/23/17 DATE OF ADMISSION: 01/22/2017 CHIEF COMPLAINT: Nausea, vomiting, abdominal pain. 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 History is obtained from the patient, and reviewing data available on the [employer] system. According to Ms. Norton she had just returned from vacation in [place] with her daughter, where her daughter had respiratory infection and also had the flu. After she returned, she did have some coughing, but had no fevers or chills. Became sick. Had nausea, vomiting, and was unable to keep anything down. This has been going on for a day or two here, and today she felt she was not hydrating herself and called Dr. Bro's office and was asked to go to the emergency room to be evaluated. In the emergency room, she presented with a mild DKA, had a pH of 7.35, pCO2 was 30, PaO2 of 93, and bicarb was 16.4. She had 80 ketones in the urine. Acetone was positive in the blood. Her blood sugars were 294 and not too high. Hospitalist Service is asked to admit her for further evaluation and treatment. At the time of my evaluation, she denied any chest pain, palpitations, or orthopnea. She had no cough, hemoptysis, night sweats, or weight loss. She denied any recent falls or loss of consciousness. No history of fevers or chills. Did have nausea and vomiting as mentioned above. Did not have any diarrhea, hematemesis, hematochezia, or hematuria. No other history of recent travel or exposures other than those mentioned above. PAST MEDICAL HISTORY: As mentioned above. 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 She also had DVT and is currently on Xarelto. She also has insulin-dependent diabetes mellitus and has a pump. SOCIAL HISTORY: She does not smoke, drink, or use recreational drugs. FAMILY HISTORY: Noncontributory. MEDICATIONS: Her medications at home were reviewed by me in the chart today and reordered by me. REVIEW OF SYSTEMS: As in history of present illness. All other systems were reviewed in detail and are quite unremarkable. PHYSICAL EXAMINATION: History And Physical [address] [address] NAME: ALAINA NORTON : [birth year] STATUS : ADM Caesar PAT#: [id number] AGE: 21 ADM/REG DATE : 01/22/17 MR#: [id number] REPORT SERV DATE: 01/23/17 DICTATED BY: FREDDY RODGERS DATE: 01/23/17 REPORT STATUS : Draft TRANSCRIBED BY: MIKEY DATE: 01/23/17 GENERAL: This is a pleasant 21-year-old female not in any acute distress. HEENT: Her head is atraumatic and normocephalic. She is alert, awake, oriented to time, place, and person. Pupils are equal, reacting to light and accommodating. External ocular muscles are intact. Membranes are moist and pink. Sclerae are nonicteric. NECK: Supple with no jugular venous distention, lymphadenopathy, or thyromegaly. LUNGS: Clear to auscultation with no wheezes, rubs, or crackles. HEART: Heart sounds were regular with no murmurs, rubs, or gallops. ABDOMEN: Soft and nontender. Bowel sounds are present. EXTREMITIES: No cyanosis, clubbing, or edema. NEUROLOGIC: Grossly intact. No focal sensory or motor deficits. Higher functions appeared intact. She does not have a J-tube anymore. The site looks clean without any discharge at this time. VITAL SIGNS: Her vital signs today showed a temperature of 97.2, pulse 108, respirations 19 a minute, blood pressure was 113/62, and oxygen saturations were 94% breathing 2-3 L via nasal cannula. LABORATORY DATA: Reviewed on the [employer] system showed a pH of 7.35 on arterial blood gas on room air, pCO2 is 30, PaO2 is 93, and bicarb is 16.4. CMP showed a sodium of 134, potassium 3.7, chloride 99, CO2 of 22, the BUN was 11 with a creatinine of 0.63. Blood glucose was 294 upon arrival. Liver numbers were within normal limits. Lipase was 51 today. Lactate was 1.1 today. CBC showed a white blood cell count of 7700. Normal hemoglobin, hematocrit, and platelet count. Urinalysis showed 80 ketones, otherwise without any signs of infection. Films of the chest x-ray were reviewed by me on the PACS today and interpreted by me. Today's films were compared to prior films available on the PACS as well. There is no acute infiltrates or effusions seen. A 12-lead EKG done in the emergency room was reviewed and interpreted by me. There is sinus tachycardia at a rate of [address]-T changes. IMPRESSION: 1. Diabetic ketoacidosis. 2. Gastroparesis. 3. Deep venous thrombosis, on Xarelto. 4. Munchausen syndrome. 5. Severe diabetic gastroparesis. 6. Insulin-dependent diabetes mellitus. 7. Asthma. PLAN: We will admit Ms. Norton to the Hospitalist Service with telemetry for a 24-hour observation period. We will start her on insulin infusion per protocol with hourly Accu- History And Physical [address] [address] NAME: ALAINA NORTON : 94 STATUS : ADM Caesar PAT#: [id number] AGE: 21 ADM/REG DATE : 01/22/17 MR#: [id number] REPORT SERV DATE: 01/23/17 DICTATED BY: FREDDY RODGERS DATE: 01/23/17 REPORT STATUS : Draft TRANSCRIBED BY: MODL DATE: 01/23/17 Cheks and adjust accordingly. We will start her on fluid replacement. We will start her on normal saline at a rate of 200 and change to D5 half-normal saline, when her sugars around 200. We will continue to check her basic metabolic profile, venous pH, and check her anion gap and ketones in the morning as well. We will hold all tube feedings at this time and also place her on bronchodilators for DVT prophylaxis. She is on Xarelto, which we will continue. I have discussed the above plans with the patient. Her questions were answered and she is agreeable to the above recommendations. Hospitalist Service will be following her during her stay. /MIKEY Freddy Rodgers M.D. / [id number] CC: Chapin Plaza Jr, MD
--- NOTE | ~2017-01-22 | CN ---
Consultation Report [facility] [address] [place]. [address] NAME: BELINDA NORTON : 89 STATUS : ADM IN [facility]#: [id number] AGE: 22 ADM/REG DATE : 01/22/17 MR#: [id number] REPORT SERV DATE: 02/04/17 DICTATED BY: OG WANG DATE: 02/03/17 REPORT STATUS : Draft TRANSCRIBED BY: MODL DATE: 02/03/17 CONSULTATION REPORT DATE OF CONSULTATION: Dear Dr. Bhandari: Thank you for requesting my opinion regarding evaluation of Ms. Norton's lung nodule. Ms. 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 She developed mild DKA and sinus congestion and had some small bloody drainage from her nose. She also complained of right-sided chest pain, but had a CT scan of the chest and V/Q scan, which did not demonstrate any new pulmonary embolism. REVIEW OF SYSTEMS: A detailed 14-point review of systems was completed. Pertinent positives and negatives are listed above. PAST MEDICAL HISTORY: 1. Gastroparesis. 2. Asthma. 3. Munchausen syndrome. 4. DVT, currently on Xarelto. 5. Insulin-dependent diabetes with a pump. PAST SURGICAL HISTORY: Port placement. SOCIAL HISTORY: The patient is a lifelong nonsmoker. She has no history of alcohol or illicit drug abuse. FAMILY HISTORY: Noncontributory. ALLERGIES: MULTIPLE ALLERGIES NOTED IN THE MAR INCLUDING ALL CILLINS, CARAMEL, SULFA, OXYCODONE, ACETAMINOPHEN, ERYTHROMYCIN BASE, CLINDAMYCIN, CLAVULANIC ACID, BACTRIM, CIPRO, ADHESIVE TAPE, AZITHROMYCIN, AMOXICILLIN, METOCLOPRAMIDE , PUMPKIN, MARSHMALLOW ROOT, LINEZOLID , MORPHINE, AND VANCOMYCIN. PHYSICAL EXAMINATION: VITAL SIGNS: Afebrile, T current of 98, pulse of 109, respiratory rate of 17, 98%, blood pressure 115/56. Central line noted. HEENT: Normocephalic and atraumatic. Pupils are equal, round, and reactive to light and accommodation. Posterior oropharynx is clear. Consultation Report [address] [place]. [address] NAME: BELINDA NORTON : 89 STATUS : ADM IN PAT#: [id number] AGE: 22 ADM/REG DATE : 01/22/17 MR#: [id number] REPORT SERV DATE: 02/04/17 DICTATED BY: OG WNAG DATE: 02/03/17 REPORT STATUS : Draft TRANSCRIBED BY: MIKEY DATE: 02/03/17 NECK: No JVD. No LAD. Trachea midline. CARDIOVASCULAR: Regular rate and rhythm. S1 and S2 present. LUNGS: Clear bilateral breath sounds. No end-expiratory wheezes noted. ABDOMEN: Nontender. Nondistended. Soft. Positive bowel sounds. EXTREMITIES: No clubbing, cyanosis, or edema. SKIN: No new rashes, lesions, or ulcers. PSYCHIATRIC: Alert and oriented x3. Appropriate mood and affect. Appropriate insight and judgment. NEUROLOGIC: 5/5 strength in upper and lower extremities. Cranial nerves 2 through 12 intact. Gait not tested. DTRs not performed. IMAGING: CT scan of the chest demonstrates no acute pulmonary infiltrate or acute thoracic pathology, stable pleural-based 8 mm nodular fibrosis in the posterior left lung noted, right IJ central venous line in place. Chemistry is normal. V/Q scan, very low probability of pulmonary embolism. ASSESSMENT AND PLAN: Ms. Belinda Norton is a pleasant 22-year-old female with a significant past medical history of diabetic ketoacidosis and 8 mm nodular fibrotic lesion and prior history of hemoptysis, status post remote bronchoscopy, who re-presented to [facility] with nausea and vomiting secondary to severe gastroparesis and diabetic ketoacidosis, developed right-sided chest pain. V/Q scan demonstrated a very low probability of pulmonary embolism, and CT scan was also reassuring with this six-month stability of her 8 mm nodular fibrotic changes in the left lung base. At this point, I recommend the followin. Follow up with Dr. Ohara in six months with a repeat CT scan to re-evaluate the 8 mm lung nodule. 2. I agree with Levaquin for her sinus symptoms. 3. No further recommendations and the patient is stable from a Pulmonary standpoint. Thank you for allowing me to participate in Ms. Belinda Norton's care. Sincerely, LALY/MIKEY Og Wang M.D. / [id number] CC: Chaim Abraham MD
--- NOTE | ~2017-01-22 | OP ---
Record Of Operation [facility] [address] [place]. [address] NAME: BELINDA NORTON : 94 STATUS : ADM IN PAT#: [id number] AGE: 22 ADM/REG DATE : 01/22/17 MR#: [id number] REPORT SERV DATE: 02/01/17 DICTATED BY: ARNOLD PHILLIPS DATE: 02/01/17 REPORT STATUS : Draft TRANSCRIBED BY: MODL DATE: 02/01/17 DATE OF PROCEDURE: 02/01/2017 PREOPERATIVE DIAGNOSIS: Diabetic gastroparesis. POSTOPERATIVE DIAGNOSIS: Diabetic gastroparesis. PROCEDURE: 1. Placement of Groshong catheter, right IJ. 2. Removal of left chest Port-A-Cath. SURGEON: Arnold Phillips M.D. ANESTHESIA: General. COMPLICATIONS: None. BLOOD LOSS: Minimal. HISTORY: The patient is a 22-year-old female in need of a long-standing IV access due to diabetic gastroparesis. It was felt the best option would be a Groshong type catheter as the only Goss catheter available had 3 ports. Catheter placement had been discussed in detail with the patient. She expressed understanding and desired to proceed. DESCRIPTION OF PROCEDURE: The patient was taken to the operating room and placed in the supine position. She was given general anesthesia without complication. Her neck and chest were prepped and draped in the sterile fashion. Ultrasound was used to identify the internal jugular vein on the right. Patency was confirmed with compression. A copy of this image is placed on the chart. 1% Lidocaine was infiltrated in the skin and the subcutaneous tissues at the internal jugular vein on to the chest wall. Under ultrasound guidance, an 18 gauge needle placed into the internal jugular vein. Wire was passed into the SVC and IVC which was confirmed with fluoroscopy. A site for exit of the Groshong was identified on the chest wall and small incision created here. The Groshong was tunneled from the access site to the exit site and fluoroscopy was used to confirm the appropriate length. Under fluoroscopic guidance, the peel-away sheath and dilator passed over the wire in the SVC. The wire and dilator were removed. The catheter was placed through the peel-away sheath. The sheath peeled away without difficulty. The catheter aspirated and flushed easily. The tip of the catheter was in the SVC. There was no kinking. The access site and exit site were closed with 4-0 Monocryl suture. The cuff was secured in the subcutaneous tissues. The catheter was then secured to the chest wall with Ethilon suture. The end of the catheter was secured with the fasting device as well prior to this. Once this was felt to be adequate, attention was turned to the left chest and 1% lidocaine was infiltrated in the skin and subcutaneous tissues at the port site. The old incision was reopened and dissection performed to free the port circumferentially from the surrounding tissues and it was removed without difficulty. The incision was closed with running 3-0 Vicryl suture followed by a running 4-0 Monocryl suture and Dermabond dressing applied. The patient Record Of [address] [place]. [address] NAME: BELINDA NORTON : 89 STATUS : ADM IN PAT#: [id number] AGE: 22 ADM/REG DATE : 01/22/17 MR#: [id number] REPORT SERV DATE: 02/01/17 DICTATED BY: ARNOLD PHILLIPS DATE: 02/01/17 REPORT STATUS : Draft TRANSCRIBED BY: MIKEY DATE: 02/01/17 tolerated the procedure well. She will be taken to the recovery room and back to her room for continued care. CSPer/MIKEY Arnold Phillips M.D. / [id number] CC: Chaim Abraham MD
--- NOTE | ~2017-01-22 | IDS ---
Interim Discharge Summary [facility] [address] [place]. [address] NAME: BELINDA NORTON : 89 STATUS : ADM IN [facility]#: [id number] AGE: 22 ADM/REG DATE : 01/22/17 MR#: [id number] REPORT SERV DATE: 02/05/17 DICTATED BY: CHANELLE SAAVEDRA DATE: 02/04/17 REPORT STATUS : Draft TRANSCRIBED BY: MODL DATE: 02/04/17 ADMISSION DATE: 01/22/2017 DISCHARGE DATE: DIABETES DIAGNOSES: Include, 1. Diabetes type 1 with gastroparesis status post diabetic ketoacidosis that has been resolved. She is back on her insulin pump and she has been seen by Dr. Alcaraz as an outpatient, currently off. The patient is not on a diabetic ketoacidosis. 2. Clotted Port-A-Cath with removal of the Port-A-Cath as well as the PICC line and placement of a Groshong catheter on the internal jugular Dr. Arnold Phillips on 02/01/2017. 3. Rhino-sino bronchial syndrome, improving antibiotics 3/5 days. 4. Severe gastroparesis with nausea and vomiting. At baseline, she has either a PICC line or a port and self-administer IV Phenergan and Benadryl at home under direction of Dr. Bro. 5. Pulmonary nodule, stable. 6. Reported episodes of near-syncope and syncope. 7. History of asthma. 8. Personality disorder with anxiety and depression. CONSULTANTS ON THE CASE: Dr. Arnold Phillips, Vascular; Dr. Montero, Neurology; Dr. Tellez of Psychiatry. PROCEDURE DONE DURING THIS HOSPITALIZATION: Include removal of the left chest port CT as well as decline and placement of Groshong catheter to the right IJ. OTHER TESTS DONE DURING THIS HOSPITALIZATION: Include a V/Q scan, which showed low probability for PE. CT of the chest without contrast which shows no acute pulmonary infiltrate. There is a stable pleural based nodular fibrotic in the left lung base which has not been changed since August 2016, CT scan with a right IJ in place the patient had an EEG performed by Dr. Montero on 02/02/2017 that has been normal, no focal abnormality seizure activity that could be identified. Also, she had MRI of the brain without contrast, that showed normal MRI of the brain and mild chronic maxillary and ethmoid sinus disease. Chest x-ray is has been negative. 2D echo showed normal left ventricular ejection fraction. HOSPITAL COURSE: This a 22-year-old female who has been admitted to Hospitalist Service under Dr. Jacinto Peraza's care on 01/23/2017 with intractable nausea, vomiting, and abdominal pain. It is important to note that she has a history of diabetes type 1 insulin dependent. 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 She finished her treatment. She has been admitted to [facility] after returning from vacationing her daughter with DKA with nausea, vomiting, and inability to keep anything down. The patient called Dr. Bro office who actually provide most of the patient care and she has been sent to emergency room to be evaluated. She has been admitted for DKA. The patient has been admitted with DKA and gastroparesis Interim Discharge Summary [address] [address] NAME: BELINDA NORTON : 89 STATUS : ADM IN PAT#: [id number] AGE: 22 ADM/REG DATE : 01/22/17 MR#: [id number] REPORT SERV DATE: 02/05/17 DICTATED BY: CHANELLE SAAVEDRA DATE: 02/04/17 REPORT STATUS : Draft TRANSCRIBED BY: MIKEY DATE: 02/04/17 exacerbation. She has been started on IV fluids initially insulin infusion as per protocol. 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 Dr. Bro has been consulted. Dr. Bro is managing her gastroparesis with some IV Phenergan and as well as IV Benadryl. She has been started by Dr. Bro on her home medications. Very slowly, her nausea and vomiting resolved. She has been able to be taken off the insulin drip and placed her on subcutaneous insulin at the settings that has been placed by Dr. Alcaraz as an outpatient with good blood sugar control. Dr. Bro recommended her Port-A-Cath is not functioning, and as a result, the vascular surgeon has been consulted to evaluate for due to partially clogged port, evaluate to for replacement, and than follow with Dr. Bro as an outpatient. Vascular has been consulted, and after discussing between Dr. Phillips and Dr. Bro, it has been recommended to placement of a Groshong catheter and removal of the Port-A-Cath as well as the PICC line. The patient has been tolerating well the catheter and medications have been administered through it. However, the patient reported episodes of the loss of intermittent over the last couple of weeks and Dr. Montero from Neurology Service has been consulted due to this recurrent episodes loss of consciousness with no prodrome episode. An MRI, EEG, as well as echo has been ordered all of which haves been normal. After placement of the Groshong catheter, the patient started to complain of some sinus congestion and some mucopurulent tinged sputum and a V/Q scan has been ordered as well as the CT of the chest with and without contrast which revealed a pulmonary nodule. The patient requested to be seen by Dr. Nino from Pulmonary Service who has been following her for the pulmonary nodule. He evaluated the CT scan as well as the patient and recommended followup with Dr. Ohara in six months with a repeat CT scan to evaluate her 8 mm lung nodule. She has had the [place]- bronchial syndrome which after started on Levaquin her sinus symptoms improved significantly. However, the patient started to complain of severe right arm pain and pain at the site of the Groshong catheter as well as the swelling, so as a result, we are going to reconsult Dr. Phillips to evaluate the patient and the catheter and the functionality of that as well as ultrasound of the right upper extremity to rule out DVT. The patient has a significant anxiety and she has been diagnosed with depression in the past related to some medical issues as well social issues, and we are going to consult Dr. Tellez from Psychiatry Service to evaluate the patient. Once ready for discharge, the patient will need to follow up with Dr. Bro as well as a primary care provider. It is important to note that her pharmacy needs to be called 24 hours prior to discharge to deliver her IV Benadryl as well as her Phenergan that has been prescribed by Dr. Derik Bro. My partner is going to start following Ms Norton since 02/06/2017. CF/MODL Chanelle Saavedra M.D. / [id number] CC: Interim Discharge Summary [address] [place]. [address] NAME: BELINDA NORTON : 89 STATUS : ADM IN PAT#: [id number] AGE: 22 ADM/REG DATE : 01/22/17 MR#: [id number] REPORT SERV DATE: 02/05/17 DICTATED BY: CHANELLE SAAVEDRA DATE: 02/04/17 REPORT STATUS : Draft TRANSCRIBED BY: MIKEY DATE: 02/04/17 Chaim Abraham MD
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
[2017-01-22 22:28] LABS: BASOPHILS 0.3 %; BASOPHILS ABSOLUTE 0.02 10/3/uL (0.0-0.16); EOSINOPHILS 0.9 %; EOSINOPHILS ABSOLUTE 0.07 10/3/uL (0.0-0.53); ER CBC TAT 0 Hrs 09 Mins; HEMATOCRIT 40.7 % (36.0-48.0); HEMOGLOBIN 14.5 g/dL (12.0-16.0); IMMATURE GRANULOCYTES 0.4 %; IMMATURE GRANULOCYTES ABSOLUTE 0.03 10/3/uL (0.0-0.11); LYMPHOCYTES 22.4 %; LYMPHOCYTES ABSOLUTE 1.72 10/3/uL (0.67-4.30); MEAN CORPUSCULAR HEMOGLOB 28.1 pg (26.0-34.0); MEAN PLATELET VOLUME 9.6 fL (9.2-13.0); MONOCYTES 5.6 %; MONOCYTES ABSOLUTE 0.43 10/3/uL (0.21-1.20); NEUTROPHILS 70.4 %; NEUTROPHILS ABSOLUTE 5.42 10/3/uL (2.02-8.40); PLATELET COUNT 292 10/3/uL (150-400); RBC DISTRIBUTION WIDTH 13.2 % (12.0-16.0); RED CELL COUNT 5.16 10/6/uL (4.0-5.6); WHITE BLOOD CELLS 7.7 10/3/uL (4.5-10.5)
[2017-01-22 22:29] LABS: MANUAL DIFF NO %; MEAN CORPUS HGB CONC 35.6 g/dL (32.0-36.0); MEAN CORPUSCULAR VOLUME 78.9 fL (80-100)
[2017-01-22 22:39] LABS: ACETONE SMALL
[2017-01-22 22:45] LABS: INTERNATIONAL NORMAL RATI 1.1 UNITS (-); PARTIAL THROMBO TIME 25.7 SEC (22.5-37.2); PROTIME (NOT ORD) 13.8 SEC (12.0-14.5)
[2017-01-22 22:49] LABS: ALKALINE PHOSPHATASE 112 U/L (45-117); BUN (BLOOD UREA NITROGEN) 11 MG/DL (6-23); CALCIUM, SERUM 9.5 MG/DL (8.5-10.4); CHEST PAIN PROFILE TAT 0 Hrs 30 Mins; CHLORIDE, SERUM 99 MMOL/L (96-112); CO2 (CARBON DIOXIDE) 22 MMOL/L (24-34); CREATININE 0.63 MG/DL (0.55-1.02); DIRECT BILIRUBIN 0.2 MG/DL (0.0-0.4); GFR AFRICAN AMERICAN 148 ML/MIN (>=60); GFR NON AFRICAN AMERICAN 127 ML/MIN (>=60); GLUCOSE, SERUM 294 MG/DL (60-99); HCG SERUM QUANTITATIVE <1.0 IU/L (0-6); INDIRECT BILIRUBIN(NOT ORDER) 0.3 MG/DL (0.1-0.9); POTASSIUM, SERUM 3.7 MMOL/L (3.5-5.3); SGOT(AST) 12 U/L (5-40); SGPT(ALT) 18 U/L (5-65); SODIUM, SERUM 134 MMOL/L (135-148); TOTAL BILIRUBIN 0.5 MG/DL (0-1.2); TOTAL PROTEIN 8.4 G/DL (6.0-8.5); TROPONIN I <0.02 NG/ML (<0.05)
[2017-01-22 23:08] LABS: BE (BASE EXCESS) -7.7 MEQ/L (0 +/- 2.5); HCO3 (ACTUAL BICARBONATE) 16.4 MEQ/L (23-27); HEMOBLOGIN CONTENT 14.1 G/DL (12-16); INSTRUMENT SERIAL # 8087; METHEMOGLOBIN 0.3 % (0-3); OPERATOR ID 17370; PCO2 (CO2 TENSION) 30 MMHG (35-45); PO2 (O2 TENSION) 93 MMHG (79-93); SAMPLE Arterial; pH 7.35 (7.37-7.43)
[2017-01-22 23:09] LABS: ALLENS TEST Pos
[2017-01-23 00:38] LABS: ASCORBIC ACID (UR NOT ORDER) NEG (NEG); BILIRUBIN, URINE NEGATIVE (NEG); ER URINALYSIS TAT 0 Hrs 00 Mins; KETONE, URINE 80 MG/DL (NEG); LEUKOCYTE ESTERASE(NOT OR NEG (NEG); NITRITE (URINE) NEG (NEG); WBC (NOT ORDERED) (RFLEX) 1 (0-5)
[2017-01-23] MEDS ORDERED: NOVLOGPUMP SC (02:32)
[2017-01-23] MEDS ORDERED: LOP25 PO (02:35)
[2017-01-23] MEDS ORDERED: BEN50P PO (02:36)
[2017-01-23] MEDS ORDERED: PHENERGAN 2525 MG/M1 IV (02:36)
[2017-01-23] MEDS ORDERED: DULERA 100 MCG/13 GM INH (02:38)
[2017-01-23] MEDS ORDERED: BUSPAR10 PO (02:38)
[2017-01-23] MEDS ORDERED: SINGULAIR1 PO (02:39)
[2017-01-23 11:10] LABS: BASOPHILS 0.2 %; BASOPHILS ABSOLUTE 0.01 10/3/uL (0.0-0.16); EOSINOPHILS 1.3 %; EOSINOPHILS ABSOLUTE 0.08 10/3/uL (0.0-0.53); HEMATOCRIT 37.2 % (36.0-48.0); HEMOGLOBIN 12.9 g/dL (12.0-16.0); IMMATURE GRANULOCYTES 0.3 %; IMMATURE GRANULOCYTES ABSOLUTE 0.02 10/3/uL (0.0-0.11); LYMPHOCYTES 29.5 %; LYMPHOCYTES ABSOLUTE 1.83 10/3/uL (0.67-4.30); MANUAL DIFF NO %; MEAN CORPUS HGB CONC 34.7 g/dL (32.0-36.0); MEAN CORPUSCULAR HEMOGLOB 27.7 pg (26.0-34.0); MEAN PLATELET VOLUME 9.6 fL (9.2-13.0); MONOCYTES 4.7 %; MONOCYTES ABSOLUTE 0.29 10/3/uL (0.21-1.20); NEUTROPHILS ABSOLUTE 3.98 10/3/uL (2.02-8.40); PLATELET COUNT 249 10/3/uL (150-400); RBC DISTRIBUTION WIDTH 13.2 % (12.0-16.0); RED CELL COUNT 4.65 10/6/uL (4.0-5.6); WHITE BLOOD CELLS 6.2 10/3/uL (4.5-10.5)
[2017-01-23 11:21] LABS: CALCIUM, SERUM 8.6 MG/DL (8.5-10.4); CHLORIDE, SERUM 105 MMOL/L (96-112); CO2 (CARBON DIOXIDE) 24 MMOL/L (24-34); CREATININE 0.64 MG/DL (0.55-1.02); GFR AFRICAN AMERICAN 147 ML/MIN (>=60); GFR NON AFRICAN AMERICAN 127 ML/MIN (>=60); SODIUM, SERUM 137 MMOL/L (135-148)
[2017-01-23 11:23] LABS: BUN (BLOOD UREA NITROGEN) 7 MG/DL (6-23); GLUCOSE, SERUM 199 MG/DL (60-99); PHOSPHORUS, SERUM 2.3 MG/DL (2.5-4.5); POTASSIUM, SERUM 3.5 MMOL/L (3.5-5.3)
[2017-01-23 14:00] LABS: ASCORBIC ACID (UR NOT ORDER) NEG (NEG); BILIRUBIN, URINE NEGATIVE (NEG); KETONE, URINE 80 MG/DL (NEG); LEUKOCYTE ESTERASE(NOT OR NEG (NEG); WBC (NOT ORDERED) (RFLEX) 2 (0-5)
[2017-01-24 05:15] LABS: BUN (BLOOD UREA NITROGEN) 10 MG/DL (6-23); CALCIUM, SERUM 8.6 MG/DL (8.5-10.4); CHLORIDE, SERUM 110 MMOL/L (96-112); CO2 (CARBON DIOXIDE) 23 MMOL/L (24-34); GFR AFRICAN AMERICAN 159 ML/MIN (>=60); GFR NON AFRICAN AMERICAN 137 ML/MIN (>=60); GLUCOSE, SERUM 198 MG/DL (60-99); POTASSIUM, SERUM 3.5 MMOL/L (3.5-5.3); SODIUM, SERUM 142 MMOL/L (135-148)
[2017-01-24 12:54] LABS: WBC (NOT ORDERED) (RFLEX) 0 (0-5)
[2017-01-24 13:11] LABS: ASCORBIC ACID (UR NOT ORDER) NEG (NEG); BILIRUBIN, URINE NEGATIVE (NEG); KETONE, URINE NEGATIVE (NEG); LEUKOCYTE ESTERASE(NOT OR NEG (NEG)
[2017-01-25 10:56] LABS: BASOPHILS 0.2 %; BASOPHILS ABSOLUTE 0.01 10/3/uL (0.0-0.16); EOSINOPHILS 2.7 %; EOSINOPHILS ABSOLUTE 0.13 10/3/uL (0.0-0.53); HEMATOCRIT 34.1 % (36.0-48.0); HEMOGLOBIN 11.6 g/dL (12.0-16.0); IMMATURE GRANULOCYTES 0.2 %; IMMATURE GRANULOCYTES ABSOLUTE 0.01 10/3/uL (0.0-0.11); LYMPHOCYTES 35.3 %; LYMPHOCYTES ABSOLUTE 1.67 10/3/uL (0.67-4.30); MEAN CORPUSCULAR HEMOGLOB 27.8 pg (26.0-34.0); MEAN CORPUSCULAR VOLUME 81.8 fL (80-100); MEAN PLATELET VOLUME 9.9 fL (9.2-13.0); MONOCYTES 10.8 %; MONOCYTES ABSOLUTE 0.51 10/3/uL (0.21-1.20); NEUTROPHILS 50.8 %; PLATELET COUNT 239 10/3/uL (150-400); RBC DISTRIBUTION WIDTH 13.2 % (12.0-16.0); RED CELL COUNT 4.17 10/6/uL (4.0-5.6); WHITE BLOOD CELLS 4.7 10/3/uL (4.5-10.5)
[2017-01-25 10:59] LABS: MANUAL DIFF NO %
[2017-01-25 11:09] LABS: BUN (BLOOD UREA NITROGEN) 10 MG/DL (6-23); CALCIUM, SERUM 8.6 MG/DL (8.5-10.4); CHLORIDE, SERUM 108 MMOL/L (96-112); CO2 (CARBON DIOXIDE) 25 MMOL/L (24-34); CREATININE 0.48 MG/DL (0.55-1.02); GFR AFRICAN AMERICAN 161 ML/MIN (>=60); GFR NON AFRICAN AMERICAN 139 ML/MIN (>=60); GLUCOSE, SERUM 167 MG/DL (60-99); POTASSIUM, SERUM 3.3 MMOL/L (3.5-5.3); SGOT(AST) 11 U/L (5-40); SGPT(ALT) 14 U/L (5-65); SODIUM, SERUM 144 MMOL/L (135-148); TOTAL BILIRUBIN 0.2 MG/DL (0-1.2)
[2017-01-25 11:11] LABS: ALBUMIN 2.9 G/DL (3.5-5.0); ALKALINE PHOSPHATASE 66 U/L (45-117); C-REACTIVE PROTEIN 7.6 MG/L (<8.0); DIRECT BILIRUBIN < 0.1 MG/DL (0.0-0.4); INDIRECT BILIRUBIN(NOT ORDER) 0.1 MG/DL (0.1-0.9); TOTAL PROTEIN 6.1 G/DL (6.0-8.5)
[2017-01-25 11:47] LABS: SED RATE 9 MM/HR (0-20)
[2017-01-26 08:05] LABS: BASOPHILS 0.4 %; BASOPHILS ABSOLUTE 0.02 10/3/uL (0.0-0.16); EOSINOPHILS 1.9 %; HEMATOCRIT 35.5 % (36.0-48.0); HEMOGLOBIN 11.9 g/dL (12.0-16.0); IMMATURE GRANULOCYTES 0.2 %; IMMATURE GRANULOCYTES ABSOLUTE 0.01 10/3/uL (0.0-0.11); LYMPHOCYTES 28.5 %; LYMPHOCYTES ABSOLUTE 1.46 10/3/uL (0.67-4.30); MEAN CORPUS HGB CONC 33.5 g/dL (32.0-36.0); MEAN CORPUSCULAR HEMOGLOB 27.2 pg (26.0-34.0); MEAN CORPUSCULAR VOLUME 81.1 fL (80-100); MEAN PLATELET VOLUME 9.5 fL (9.2-13.0); MONOCYTES 8.2 %; MONOCYTES ABSOLUTE 0.42 10/3/uL (0.21-1.20); NEUTROPHILS 60.8 %; NEUTROPHILS ABSOLUTE 3.12 10/3/uL (2.02-8.40); PLATELET COUNT 222 10/3/uL (150-400); RBC DISTRIBUTION WIDTH 12.9 % (12.0-16.0); RED CELL COUNT 4.38 10/6/uL (4.0-5.6); WHITE BLOOD CELLS 5.1 10/3/uL (4.5-10.5)
[2017-01-26 08:06] LABS: MANUAL DIFF NO %
[2017-01-26 08:15] LABS: BUN (BLOOD UREA NITROGEN) 9 MG/DL (6-23); CALCIUM, SERUM 8.6 MG/DL (8.5-10.4); CHLORIDE, SERUM 105 MMOL/L (96-112); CO2 (CARBON DIOXIDE) 27 MMOL/L (24-34); CREATININE 0.53 MG/DL (0.55-1.02); GFR AFRICAN AMERICAN 156 ML/MIN (>=60); GFR NON AFRICAN AMERICAN 135 ML/MIN (>=60); GLUCOSE, SERUM 163 MG/DL (60-99); POTASSIUM, SERUM 3.6 MMOL/L (3.5-5.3); SODIUM, SERUM 140 MMOL/L (135-148)
[2017-01-27 06:09] LABS: BASOPHILS 0.2 %; BASOPHILS ABSOLUTE 0.01 10/3/uL (0.0-0.16); EOSINOPHILS 0.6 %; EOSINOPHILS ABSOLUTE 0.04 10/3/uL (0.0-0.53); HEMATOCRIT 36.3 % (36.0-48.0); HEMOGLOBIN 12.3 g/dL (12.0-16.0); IMMATURE GRANULOCYTES 0.2 %; IMMATURE GRANULOCYTES ABSOLUTE 0.01 10/3/uL (0.0-0.11); LYMPHOCYTES 18.9 %; LYMPHOCYTES ABSOLUTE 1.24 10/3/uL (0.67-4.30); MANUAL DIFF NO %; MEAN CORPUS HGB CONC 33.9 g/dL (32.0-36.0); MEAN CORPUSCULAR HEMOGLOB 27.6 pg (26.0-34.0); MEAN CORPUSCULAR VOLUME 81.6 fL (80-100); MEAN PLATELET VOLUME 9.5 fL (9.2-13.0); MONOCYTES 8.4 %; MONOCYTES ABSOLUTE 0.55 10/3/uL (0.21-1.20); NEUTROPHILS 71.7 %; PLATELET COUNT 238 10/3/uL (150-400); RED CELL COUNT 4.45 10/6/uL (4.0-5.6); WHITE BLOOD CELLS 6.6 10/3/uL (4.5-10.5)
[2017-01-27 06:22] LABS: A/G RATIO 0.8 (0.7-1.9); ALBUMIN 3.2 G/DL (3.5-5.0); BUN (BLOOD UREA NITROGEN) 9 MG/DL (6-23); CALCIUM, SERUM 9.1 MG/DL (8.5-10.4); CHLORIDE, SERUM 103 MMOL/L (96-112); CO2 (CARBON DIOXIDE) 27 MMOL/L (24-34); CREATININE 0.52 MG/DL (0.55-1.02); GFR AFRICAN AMERICAN 157 ML/MIN (>=60); GFR NON AFRICAN AMERICAN 136 ML/MIN (>=60); GLOBULIN 4.1 G/DL (2.5-4.1); GLUCOSE, SERUM 182 MG/DL (60-99); POTASSIUM, SERUM 4.1 MMOL/L (3.5-5.3); SGOT(AST) 10 U/L (5-40); SGPT(ALT) 15 U/L (5-65); SODIUM, SERUM 138 MMOL/L (135-148); TOTAL BILIRUBIN 0.4 MG/DL (0-1.2); TOTAL PROTEIN 7.3 G/DL (6.0-8.5)
[2017-01-27 06:23] LABS: ALKALINE PHOSPHATASE 79 U/L (45-117)
[2017-01-28 06:13] LABS: BUN (BLOOD UREA NITROGEN) 10 MG/DL (6-23); CALCIUM, SERUM 9.2 MG/DL (8.5-10.4); CHLORIDE, SERUM 105 MMOL/L (96-112); CO2 (CARBON DIOXIDE) 28 MMOL/L (24-34); CREATININE 0.49 MG/DL (0.55-1.02); GFR AFRICAN AMERICAN 160 ML/MIN (>=60); GFR NON AFRICAN AMERICAN 138 ML/MIN (>=60); GLUCOSE, SERUM 212 MG/DL (60-99); POTASSIUM, SERUM 3.7 MMOL/L (3.5-5.3); SODIUM, SERUM 140 MMOL/L (135-148)
[2017-01-29 06:28] LABS: BASOPHILS 0.5 %; BASOPHILS ABSOLUTE 0.03 10/3/uL (0.0-0.16); EOSINOPHILS 1.6 %; EOSINOPHILS ABSOLUTE 0.09 10/3/uL (0.0-0.53); HEMATOCRIT 34.7 % (36.0-48.0); HEMOGLOBIN 11.5 g/dL (12.0-16.0); IMMATURE GRANULOCYTES 0.2 %; IMMATURE GRANULOCYTES ABSOLUTE 0.01 10/3/uL (0.0-0.11); LYMPHOCYTES 27.7 %; LYMPHOCYTES ABSOLUTE 1.57 10/3/uL (0.67-4.30); MEAN CORPUS HGB CONC 33.1 g/dL (32.0-36.0); MEAN CORPUSCULAR HEMOGLOB 27.1 pg (26.0-34.0); MEAN CORPUSCULAR VOLUME 81.8 fL (80-100); MEAN PLATELET VOLUME 9.7 fL (9.2-13.0); MONOCYTES 8.5 %; MONOCYTES ABSOLUTE 0.48 10/3/uL (0.21-1.20); NEUTROPHILS 61.5 %; NEUTROPHILS ABSOLUTE 3.48 10/3/uL (2.02-8.40); PLATELET COUNT 252 10/3/uL (150-400); RBC DISTRIBUTION WIDTH 12.7 % (12.0-16.0); RED CELL COUNT 4.24 10/6/uL (4.0-5.6); WHITE BLOOD CELLS 5.7 10/3/uL (4.5-10.5)
[2017-01-29 06:31] LABS: MANUAL DIFF NO %
[2017-01-29 06:40] LABS: CHLORIDE, SERUM 101 MMOL/L (96-112); CO2 (CARBON DIOXIDE) 30 MMOL/L (24-34); CREATININE 0.61 MG/DL (0.55-1.02); GFR AFRICAN AMERICAN 149 ML/MIN (>=60); GFR NON AFRICAN AMERICAN 129 ML/MIN (>=60); GLUCOSE, SERUM 233 MG/DL (60-99); POTASSIUM, SERUM 3.7 MMOL/L (3.5-5.3); SODIUM, SERUM 137 MMOL/L (135-148)
[2017-01-29 06:41] LABS: BUN (BLOOD UREA NITROGEN) 14 MG/DL (6-23)
[2017-01-30 10:10] LABS: BUN (BLOOD UREA NITROGEN) 9 MG/DL (6-23); CALCIUM, SERUM 8.3 MG/DL (8.5-10.4); CHLORIDE, SERUM 110 MMOL/L (96-112); CO2 (CARBON DIOXIDE) 27 MMOL/L (24-34); CREATININE 0.43 MG/DL (0.55-1.02); GFR AFRICAN AMERICAN 167 ML/MIN (>=60); GFR NON AFRICAN AMERICAN 144 ML/MIN (>=60); GLUCOSE, SERUM 85 MG/DL (60-99); SODIUM, SERUM 144 MMOL/L (135-148)
[2017-01-31 06:41] LABS: BASOPHILS 0.6 %; BASOPHILS ABSOLUTE 0.03 10/3/uL (0.0-0.16); EOSINOPHILS 2.3 %; EOSINOPHILS ABSOLUTE 0.11 10/3/uL (0.0-0.53); HEMOGLOBIN 10.2 g/dL (12.0-16.0); IMMATURE GRANULOCYTES 0.2 %; IMMATURE GRANULOCYTES ABSOLUTE 0.01 10/3/uL (0.0-0.11); LYMPHOCYTES 38.3 %; LYMPHOCYTES ABSOLUTE 1.84 10/3/uL (0.67-4.30); MEAN CORPUS HGB CONC 33.2 g/dL (32.0-36.0); MEAN CORPUSCULAR HEMOGLOB 27.8 pg (26.0-34.0); MEAN CORPUSCULAR VOLUME 83.7 fL (80-100); MEAN PLATELET VOLUME 9.7 fL (9.2-13.0); MONOCYTES 9.6 %; MONOCYTES ABSOLUTE 0.46 10/3/uL (0.21-1.20); NEUTROPHILS ABSOLUTE 2.35 10/3/uL (2.02-8.40); PLATELET COUNT 238 10/3/uL (150-400); RBC DISTRIBUTION WIDTH 12.6 % (12.0-16.0); RED CELL COUNT 3.67 10/6/uL (4.0-5.6); WHITE BLOOD CELLS 4.8 10/3/uL (4.5-10.5)
[2017-01-31 06:42] LABS: HEMATOCRIT 30.7 % (36.0-48.0); MANUAL DIFF NO %
[2017-01-31 06:57] LABS: BUN (BLOOD UREA NITROGEN) 6 MG/DL (6-23); CHLORIDE, SERUM 111 MMOL/L (96-112); CO2 (CARBON DIOXIDE) 25 MMOL/L (24-34); CREATININE 0.46 MG/DL (0.55-1.02); GFR AFRICAN AMERICAN 164 ML/MIN (>=60); GFR NON AFRICAN AMERICAN 141 ML/MIN (>=60); POTASSIUM, SERUM 3.9 MMOL/L (3.5-5.3); SODIUM, SERUM 144 MMOL/L (135-148)
[2017-01-31 06:59] LABS: GLUCOSE, SERUM 181 MG/DL (60-99)
[2017-02-01 04:48] LABS: BASOPHILS 0.7 %; BASOPHILS ABSOLUTE 0.03 10/3/uL (0.0-0.16); EOSINOPHILS 2.1 %; EOSINOPHILS ABSOLUTE 0.09 10/3/uL (0.0-0.53); HEMATOCRIT 29.7 % (36.0-48.0); HEMOGLOBIN 9.9 g/dL (12.0-16.0); IMMATURE GRANULOCYTES 0.2 %; IMMATURE GRANULOCYTES ABSOLUTE 0.01 10/3/uL (0.0-0.11); LYMPHOCYTES 40.2 %; LYMPHOCYTES ABSOLUTE 1.76 10/3/uL (0.67-4.30); MANUAL DIFF NO %; MEAN CORPUS HGB CONC 33.3 g/dL (32.0-36.0); MEAN CORPUSCULAR HEMOGLOB 27.6 pg (26.0-34.0); MEAN CORPUSCULAR VOLUME 82.7 fL (80-100); MEAN PLATELET VOLUME 9.3 fL (9.2-13.0); MONOCYTES ABSOLUTE 0.44 10/3/uL (0.21-1.20); NEUTROPHILS 46.8 %; NEUTROPHILS ABSOLUTE 2.05 10/3/uL (2.02-8.40); PLATELET COUNT 226 10/3/uL (150-400); RBC DISTRIBUTION WIDTH 12.7 % (12.0-16.0); RED CELL COUNT 3.59 10/6/uL (4.0-5.6); WHITE BLOOD CELLS 4.4 10/3/uL (4.5-10.5)
[2017-02-01 05:06] LABS: BUN (BLOOD UREA NITROGEN) 5 MG/DL (6-23); CALCIUM, SERUM 8.2 MG/DL (8.5-10.4); CHLORIDE, SERUM 111 MMOL/L (96-112); CO2 (CARBON DIOXIDE) 23 MMOL/L (24-34); CREATININE 0.43 MG/DL (0.55-1.02); GFR AFRICAN AMERICAN 166 ML/MIN (>=60); GFR NON AFRICAN AMERICAN 143 ML/MIN (>=60); GLUCOSE, SERUM 151 MG/DL (60-99); POTASSIUM, SERUM 3.7 MMOL/L (3.5-5.3); SODIUM, SERUM 144 MMOL/L (135-148)
[2017-02-02 05:35] LABS: BASOPHILS 0.7 %; BASOPHILS ABSOLUTE 0.03 10/3/uL (0.0-0.16); EOSINOPHILS 2.4 %; EOSINOPHILS ABSOLUTE 0.11 10/3/uL (0.0-0.53); HEMATOCRIT 31.8 % (36.0-48.0); HEMOGLOBIN 10.6 g/dL (12.0-16.0); IMMATURE GRANULOCYTES 0.2 %; IMMATURE GRANULOCYTES ABSOLUTE 0.01 10/3/uL (0.0-0.11); LYMPHOCYTES 33.9 %; LYMPHOCYTES ABSOLUTE 1.54 10/3/uL (0.67-4.30); MEAN CORPUS HGB CONC 33.3 g/dL (32.0-36.0); MEAN CORPUSCULAR HEMOGLOB 27.2 pg (26.0-34.0); MEAN CORPUSCULAR VOLUME 81.7 fL (80-100); MEAN PLATELET VOLUME 9.5 fL (9.2-13.0); NEUTROPHILS 51.8 %; NEUTROPHILS ABSOLUTE 2.35 10/3/uL (2.02-8.40); PLATELET COUNT 253 10/3/uL (150-400); RBC DISTRIBUTION WIDTH 12.8 % (12.0-16.0); RED CELL COUNT 3.89 10/6/uL (4.0-5.6); WHITE BLOOD CELLS 4.5 10/3/uL (4.5-10.5)
[2017-02-02 05:42] LABS: MANUAL DIFF NO %
[2017-02-02 06:03] LABS: BUN (BLOOD UREA NITROGEN) 6 MG/DL (6-23); CALCIUM, SERUM 8.8 MG/DL (8.5-10.4); CHLORIDE, SERUM 108 MMOL/L (96-112); CO2 (CARBON DIOXIDE) 26 MMOL/L (24-34); FREE T4 1.04 NG/DL (0.76-1.46); GFR AFRICAN AMERICAN 149 ML/MIN (>=60); GFR NON AFRICAN AMERICAN 128 ML/MIN (>=60); POTASSIUM, SERUM 4.1 MMOL/L (3.5-5.3); SODIUM, SERUM 142 MMOL/L (135-148); ULTRASENSITIVE TSH 0.733 MCIU/ML (0.358-3.740)
[2017-02-02 06:05] LABS: FOLATE 16.1 NG/ML (>5.2); GLUCOSE, SERUM 228 MG/DL (60-99)
[2017-02-03 04:50] LABS: BASOPHILS 0.1 %; BASOPHILS ABSOLUTE 0.01 10/3/uL (0.0-0.16); EOSINOPHILS 1.1 %; EOSINOPHILS ABSOLUTE 0.09 10/3/uL (0.0-0.53); HEMATOCRIT 34.6 % (36.0-48.0); HEMOGLOBIN 11.4 g/dL (12.0-16.0); IMMATURE GRANULOCYTES 0.1 %; IMMATURE GRANULOCYTES ABSOLUTE 0.01 10/3/uL (0.0-0.11); LYMPHOCYTES 20.5 %; LYMPHOCYTES ABSOLUTE 1.63 10/3/uL (0.67-4.30); MEAN CORPUS HGB CONC 32.9 g/dL (32.0-36.0); MEAN CORPUSCULAR HEMOGLOB 27.1 pg (26.0-34.0); MEAN CORPUSCULAR VOLUME 82.2 fL (80-100); MEAN PLATELET VOLUME 9.4 fL (9.2-13.0); MONOCYTES ABSOLUTE 0.56 10/3/uL (0.21-1.20); NEUTROPHILS 71.2 %; NEUTROPHILS ABSOLUTE 5.67 10/3/uL (2.02-8.40); PLATELET COUNT 281 10/3/uL (150-400); RBC DISTRIBUTION WIDTH 12.9 % (12.0-16.0); RED CELL COUNT 4.21 10/6/uL (4.0-5.6)
[2017-02-03 04:52] LABS: MANUAL DIFF NO %
[2017-02-03 05:02] LABS: A/G RATIO 0.8 (0.7-1.9); ALBUMIN 3.2 G/DL (3.5-5.0); BUN (BLOOD UREA NITROGEN) 8 MG/DL (6-23); CALCIUM, SERUM 9.1 MG/DL (8.5-10.4); CHLORIDE, SERUM 106 MMOL/L (96-112); CO2 (CARBON DIOXIDE) 27 MMOL/L (24-34); CREATININE 0.65 MG/DL (0.55-1.02); GFR AFRICAN AMERICAN 145 ML/MIN (>=60); GFR NON AFRICAN AMERICAN 125 ML/MIN (>=60); GLOBULIN 3.8 G/DL (2.5-4.1); POTASSIUM, SERUM 3.5 MMOL/L (3.5-5.3); SGOT(AST) 21 U/L (5-40); SGPT(ALT) 30 U/L (5-65); SODIUM, SERUM 143 MMOL/L (135-148); TOTAL BILIRUBIN 0.4 MG/DL (0-1.2)
[2017-02-03 05:04] LABS: ALKALINE PHOSPHATASE 67 U/L (45-117); GLUCOSE, SERUM 118 MG/DL (60-99)
[2017-02-04 06:49] LABS: BASOPHILS 0.5 %; BASOPHILS ABSOLUTE 0.02 10/3/uL (0.0-0.16); EOSINOPHILS ABSOLUTE 0.13 10/3/uL (0.0-0.53); HEMATOCRIT 33.1 % (36.0-48.0); HEMOGLOBIN 10.9 g/dL (12.0-16.0); IMMATURE GRANULOCYTES 0.5 %; IMMATURE GRANULOCYTES ABSOLUTE 0.02 10/3/uL (0.0-0.11); LYMPHOCYTES 34.9 %; LYMPHOCYTES ABSOLUTE 1.53 10/3/uL (0.67-4.30); MANUAL DIFF NO %; MEAN CORPUS HGB CONC 32.9 g/dL (32.0-36.0); MEAN CORPUSCULAR HEMOGLOB 27.3 pg (26.0-34.0); MEAN CORPUSCULAR VOLUME 82.8 fL (80-100); MEAN PLATELET VOLUME 9.1 fL (9.2-13.0); MONOCYTES 9.3 %; MONOCYTES ABSOLUTE 0.41 10/3/uL (0.21-1.20); NEUTROPHILS 51.8 %; NEUTROPHILS ABSOLUTE 2.28 10/3/uL (2.02-8.40); PLATELET COUNT 275 10/3/uL (150-400); RBC DISTRIBUTION WIDTH 12.8 % (12.0-16.0); WHITE BLOOD CELLS 4.4 10/3/uL (4.5-10.5)
[2017-02-04 07:02] LABS: BUN (BLOOD UREA NITROGEN) 9 MG/DL (6-23); CALCIUM, SERUM 8.8 MG/DL (8.5-10.4); CHLORIDE, SERUM 107 MMOL/L (96-112); CO2 (CARBON DIOXIDE) 27 MMOL/L (24-34); CREATININE 0.66 MG/DL (0.55-1.02); GFR AFRICAN AMERICAN 144 ML/MIN (>=60); GFR NON AFRICAN AMERICAN 125 ML/MIN (>=60); POTASSIUM, SERUM 3.9 MMOL/L (3.5-5.3); SODIUM, SERUM 140 MMOL/L (135-148)
[2017-02-04 07:03] LABS: GLUCOSE, SERUM 195 MG/DL (60-99)
[2017-02-05 03:36] LABS: BASOPHILS 0.6 %; BASOPHILS ABSOLUTE 0.03 10/3/uL (0.0-0.16); EOSINOPHILS 2.7 %; EOSINOPHILS ABSOLUTE 0.13 10/3/uL (0.0-0.53); HEMATOCRIT 33.6 % (36.0-48.0); HEMOGLOBIN 11.2 g/dL (12.0-16.0); IMMATURE GRANULOCYTES 0.4 %; IMMATURE GRANULOCYTES ABSOLUTE 0.02 10/3/uL (0.0-0.11); LYMPHOCYTES 38.9 %; LYMPHOCYTES ABSOLUTE 1.88 10/3/uL (0.67-4.30); MEAN CORPUS HGB CONC 33.3 g/dL (32.0-36.0); MEAN CORPUSCULAR HEMOGLOB 27.9 pg (26.0-34.0); MEAN CORPUSCULAR VOLUME 83.8 fL (80-100); MEAN PLATELET VOLUME 9.1 fL (9.2-13.0); MONOCYTES 8.3 %; NEUTROPHILS 49.1 %; NEUTROPHILS ABSOLUTE 2.37 10/3/uL (2.02-8.40); PLATELET COUNT 282 10/3/uL (150-400); RBC DISTRIBUTION WIDTH 12.6 % (12.0-16.0); RED CELL COUNT 4.01 10/6/uL (4.0-5.6); WHITE BLOOD CELLS 4.8 10/3/uL (4.5-10.5)
[2017-02-05 03:38] LABS: MANUAL DIFF NO %
[2017-02-05 03:48] LABS: BUN (BLOOD UREA NITROGEN) 12 MG/DL (6-23); CALCIUM, SERUM 9.5 MG/DL (8.5-10.4); CHLORIDE, SERUM 105 MMOL/L (96-112); CO2 (CARBON DIOXIDE) 28 MMOL/L (24-34); CREATININE 0.59 MG/DL (0.55-1.02); GFR AFRICAN AMERICAN 150 ML/MIN (>=60); GFR NON AFRICAN AMERICAN 129 ML/MIN (>=60); SODIUM, SERUM 143 MMOL/L (135-148)
[2017-02-05 03:49] LABS: GLUCOSE, SERUM 141 MG/DL (60-99)
[2017-02-06 06:08] LABS: MEAN CORPUS HGB CONC 32.8 g/dL (32.0-36.0); MEAN CORPUSCULAR HEMOGLOB 27.5 pg (26.0-34.0); MEAN CORPUSCULAR VOLUME 84.1 fL (80-100); MEAN PLATELET VOLUME 8.8 fL (9.2-13.0); RBC DISTRIBUTION WIDTH 12.8 % (12.0-16.0); WHITE BLOOD CELLS 3.1 10/3/uL (4.5-10.5)
[2017-02-06 06:15] LABS: HEMATOCRIT 17.4 % (36.0-48.0); HEMOGLOBIN 5.7 g/dL (12.0-16.0); PLATELET COUNT 146 10/3/uL (150-400); RED CELL COUNT 2.07 10/6/uL (4.0-5.6)
[2017-02-06 06:16] LABS: MANUAL DIFF YES %
[2017-02-06 07:09] LABS: BUN (BLOOD UREA NITROGEN) 12 MG/DL (6-23); CALCIUM, SERUM 8.7 MG/DL (8.5-10.4); CHLORIDE, SERUM 107 MMOL/L (96-112); CO2 (CARBON DIOXIDE) 26 MMOL/L (24-34); CREATININE 0.64 MG/DL (0.55-1.02); GFR AFRICAN AMERICAN 146 ML/MIN (>=60); GFR NON AFRICAN AMERICAN 126 ML/MIN (>=60); GLUCOSE, SERUM 165 MG/DL (60-99); POTASSIUM, SERUM 4.1 MMOL/L (3.5-5.3); SODIUM, SERUM 142 MMOL/L (135-148)
[2017-02-06 07:48] LABS: BAND NEUTROPHILS 2 %; LYMPHOCYTES 35 %; LYMPHOCYTES ABSOLUTE (CALC) 1.09 10/3/uL (0.67-4.30); MONOCYTES 7 %; MONOCYTES ABSOLUTE (CALC) 0.22 10/3/uL (0.21-1.20); PLATELET ESTIMATE SLT DEC (ADEQUATE); SEGMENTED NEUTROPHIL (0) 56 %; TOTAL NUCLEATED CELLS 100
[2017-02-06 07:49] LABS: BURR CELLS 1+ (3-10/OIF) (0-2/OIF); POIKILOCYTOSIS 1+ (5-10/OIF) (0-5/OIF)
[2017-02-06 08:36] LABS: BASOPHILS 0.5 %; BASOPHILS ABSOLUTE 0.03 10/3/uL (0.0-0.16); EOSINOPHILS 2.5 %; EOSINOPHILS ABSOLUTE 0.14 10/3/uL (0.0-0.53); HEMATOCRIT 32.9 % (36.0-48.0); HEMOGLOBIN 10.9 g/dL (12.0-16.0); IMMATURE GRANULOCYTES 0.7 %; IMMATURE GRANULOCYTES ABSOLUTE 0.04 10/3/uL (0.0-0.11); LYMPHOCYTES 37.6 %; LYMPHOCYTES ABSOLUTE 2.07 10/3/uL (0.67-4.30); MEAN CORPUS HGB CONC 33.1 g/dL (32.0-36.0); MEAN CORPUSCULAR HEMOGLOB 27.6 pg (26.0-34.0); MEAN CORPUSCULAR VOLUME 83.3 fL (80-100); MEAN PLATELET VOLUME 9.6 fL (9.2-13.0); MONOCYTES 8.7 %; MONOCYTES ABSOLUTE 0.48 10/3/uL (0.21-1.20); NEUTROPHILS ABSOLUTE 2.75 10/3/uL (2.02-8.40); PLATELET COUNT 294 10/3/uL (150-400); RBC DISTRIBUTION WIDTH 12.8 % (12.0-16.0); RED CELL COUNT 3.95 10/6/uL (4.0-5.6); WHITE BLOOD CELLS 5.5 10/3/uL (4.5-10.5)
[2017-02-06 08:37] LABS: MANUAL DIFF NO %
[2017-02-06] MEDS ORDERED: DIPHENCR TOP (16:22)
[2017-02-06] MEDS ORDERED: MUCINEX600 MG PO (16:24)
== END 2017-02-06 18:41 | disposition home or self-care (01) | DRG 638 ==
LOC: ER 20:36 → CDU1 21:00 → 2SO 01-24 17:48
PROVIDERS: Emergency Medicine; Hospitalist; Internal Medicine; Internal Medicine Gastroenterology; Nurse Practitioner Family; Surgery
PROC: 0JH63XZ Insertion of Tunneled Vascular Access Device into Chest Subcutaneous Tissue and Fascia, Percutaneous Approach (ICD-10-PCS; 2017-02-01)
PROC: 02HV33Z Insertion of Infusion Device into Superior Vena Cava, Percutaneous Approach (ICD-10-PCS; 2017-02-01)
PROC: B5181ZA Fluoroscopy of Superior Vena Cava using Low Osmolar Contrast, Guidance (ICD-10-PCS; 2017-02-01)
PROC: 0JPT0XZ Removal of Tunneled Vascular Access Device from Trunk Subcutaneous Tissue and Fascia, Open Approach (ICD-10-PCS; principal; 2017-02-01 12:45)
PROC: 02PY33Z Removal of Infusion Device from Great Vessel, Percutaneous Approach (ICD-10-PCS; 2017-02-01 12:45)
DX: E10.10 Type 1 diabetes mellitus with ketoacidosis without coma (principal); F68.10 Factitious disorder imposed on self, unspecified; E88.81 Metabolic syndrome and other insulin resistance; K31.84 Gastroparesis; E10.43 Type 1 diabetes mellitus with diabetic autonomic (poly)neuropathy; E11.9 Type 2 diabetes mellitus without complications; J32.9 Chronic sinusitis, unspecified; J45.909 Unspecified asthma, uncomplicated; J06.9 Acute upper respiratory infection, unspecified; Z96.41 Presence of insulin pump (external) (internal); R91.1 Solitary pulmonary nodule; F41.9 Anxiety disorder, unspecified; Z93.4 Other artificial openings of gastrointestinal tract status; Z80.3 Family history of malignant neoplasm of breast; Y82.8 Other medical devices associated with adverse incidents; T85.9XXA Unspecified complication of internal prosthetic device, implant and graft, initial encounter; Z79.4 Long term (current) use of insulin; Z86.718 Personal history of other venous thrombosis and embolism
CPT/HCPCS: 36010; 36558; 36590; 36595; 36598; 36600; 70551; 71010; 71020; 71250; 76937; 77001; 78582; 80048; 80053; 80076; 81001; 82009; 82140; 82607; 82746; 82805; 82962; 83605; 83690; 83735; 84100; 84439; 84443; 84484; 84702; 84703; 85025; 85610; 85652; 85730; 86140; 87040; 87205; 93005; 93971; 94640; 95819; 96374; 96375; 96376; 99285; A9270-GY; A9540; A9567; C1769; C1894; C8929; C9113; J0330; J0610; J1170; J1200; J1940; J1956; J2250; J2370; J2405; J2550; J2997; J3010; J3370; J3475; Q9957; Q9967